=== PATIENT | male | born 1945 | race Caucasian/White ===

== ENCOUNTER 2018-02-13 14:55 | Emergency (ER) | payer OTHER ==
--- NOTE | 2018-02-13 16:20 | RAD REPORT ---
EXAM DESCRIPTION: Nathaniel Single View02/13/2018 3:52 pm CLINICAL HISTORY: cough COMPARISON: 2010 FINDINGS: The lungs appear clear of acute infiltrate. The heart is normal size IMPRESSION: No acute abnormalities displayed
[2018-02-13 16:21] LABS: Absolute Lymphocytes (CBC) 2.2 K/uL (0.7-4.9); Absolute Monocytes 1.5 K/uL (0.1-1.3); Absolute Neutrophil 14.9 K/uL (1.8-8.0); Basophils % 0.4 % (0-1.3); Eosinophils % 0.3 % (0-4.4); Hematocrit 41.1 % (39.6-49.0); Lymphocytes % 11.9 % (15.3-44.8); MCH 30.3 pg (27.0-35.0); MPV 7.8 fL (7.6-11.3); Monocytes % 8.2 % (3.3-12.3); RBC Red Blood Cell Count 4.57 M/uL (4.33-5.43)
[2018-02-13 16:22] LABS: Protime INR 1.21
[2018-02-13 16:23] LABS: Potassium 3.6 mEq/L (3.6-5.0)
[2018-02-13] MEDS ORDERED: Levofloxacin500mg IV 500 MG/100 ML BAG IV ONE (16:50)
--- NOTE | 2018-02-13 17:25 | ER ---
Nurse's Notes [facility] Name: Henry Lawler Age: 72 yrs Sex: Male : 1945 Arrival Date: 02/13/2018 Time: 14:59 Bed 16 Private MD: Diagnosis: Chronic obstructive pulmonary disease with acute lower respiratory infection Presentation: 02/13 15:02 Presenting complaint: Patient states: productive cough, chest congestion, fever up to aa5 101.8 F x 2 days ago. Transition of care: patient was not received from another setting of care. Onset of symptoms was February 2018. Initial Sepsis Screen: Does the patient meet any 2 criteria? HR > 90 bpm. Does the patient have a suspected source of infection? Yes: Productive cough/pneumonia. Care prior to arrival: None. 15:02 Method Of Arrival: Ambulatory aa5 15:02 Acuity: BEAU 3 aa5 Historical: - Allergies: 15:04 Codeine; aa5 - Home Meds: 15:10 rosuvastatin 10 mg oral tab 1 tab once daily [Active]; losartan 50 mg oral tab 1 tab rb1 once daily [Active]; citalopram 20 mg tab 1 tab once daily [Active]; gabapentin 300 mg oral cap 1 cap 3 times per day [Active]; nortriptyline 10 mg Oral cap 1 caps daily [Active]; Centrum Silver oral oral [Active]; CoQ-10 oral oral daily [Active]; nexabiotic [Active]; Curaphen daily [Active]; - PMHx: 15:04 Hypertension; COPD; aa5 - PSHx: 15:04 Heart stents; Appendectomy; aa5 - Immunization history:: Pneumococcal vaccine is up to date. - Social history:: Smoking status: Patient/guardian denies using tobacco, the patient reports quitting approximately 20 years ago. Screenin:10 Abuse screen: Denies threats or abuse. Nutritional screening: No deficits noted. rb1 Tuberculosis screening: No symptoms or risk factors identified. Fall Risk None identified. Assessment: 15:10 General: Appears in no apparent distress. comfortable, Behavior is calm, cooperative, rb1 Reports fever for. Pain: Denies pain. Neuro: Level of Consciousness is awake, alert, obeys commands, Oriented to person, place, time, situation. Cardiovascular: Capillary refill < 3 seconds is brisk in bilateral fingers. Respiratory: Airway is patent Respiratory effort is even, unlabored, Respiratory pattern is regular, symmetrical. GI: No signs and/or symptoms were reported involving the gastrointestinal system. : No signs and/or symptoms were reported regarding the genitourinary system. Derm: Skin is pink, warm \T\ dry. Musculoskeletal: Range of motion: intact in all extremities. 16:00 Reassessment: Patient appears in no apparent distress at this time. No changes from rb1 previously documented assessment. 17:00 Reassessment: Patient appears in no apparent distress at this time. Patient and/or rb1 family updated on plan of care and expected duration. Pain level reassessed. Patient is alert, oriented x 3, equal unlabored respirations, skin warm/dry/pink. is at bedside. 17:54 Reassessment: Discharge pending due to IV antibiotics infusing. rb1 Vital Signs: 15:03 BP 130 / 86; Pulse 106; Resp 20 S; Temp 99.5(TE); Pulse Ox 94% on R/A; Weight 98.43 kg aa5 (R); Height 5 ft. 11 in. (180.34 cm) (R); Pain 0/10; 16:00 BP 142 / 65; Pulse 89; Resp 19; Pulse Ox 94% on R/A; rb1 17:00 BP 163 / 70; Pulse 86; Resp 18; Pulse Ox 95% on R/A; rb1 17:53 BP 163 / 88; Pulse 87; Resp 18; Pulse Ox 99% on R/A; rb1 15:03 Body Mass Index 30.27 (98.43 kg, 180.34 cm) aa5 ED Course: 14:59 Patient arrived in ED. sb2 15:03 Triage completed. aa5 15:03 Arm band placed on. aa5 15:10 Patient has correct armband on for positive identification. Bed in low position. Call rb1 light in reach. Side rails up X 1. equipment monitor phototypesetting on. Pulse ox on. NIBP on. 15:11 Kamille Ovalle FNP-C is PHCP. snw 15:11 Tone Mccabe MD is Attending Physician. snw 15:35 Monique Guallpa, MEHDI is Primary Nurse. rb1 15:50 X-ray completed. Portable x-ray completed in exam room. Patient tolerated procedure la2 well. 15:52 Chest Single View XRAY In Process Unspecified. EDMS 15:56 Initial lab(s) drawn, by pa, sent to lab. First set of blood cultures drawn by me. 3 Inserted saline lock: 20 gauge in left antecubital area, using aseptic technique. Blood collected. 16:14 Second set of blood cultures drawn by venipuncture 23G to the right ac by pa. 3 16:28 EKG done, by ED staff, reviewed by Kamille VALDES. 3 18:00 No provider procedures requiring assistance completed. IV discontinued, intact, rb1 bleeding controlled, No redness/swelling at site. Pressure dressing applied. Administered Medications: 16:50 Drug: LevaQUIN 500 mg Volume: 100 ml; Route: IVPB; Infused Over: 60 mins; Site: left rb1 antecubital; 17:59 Follow up: Response: No adverse reaction; IV Status: Completed infusion rb1 17:51 Drug: Decadron 8 mg Route: PO; rb1 18:00 Follow up: Response: Medication administered at discharge. rb1 Outcome: 17:25 Discharge ordered by . snw 18:00 Discharged to home ambulatory, with family. rb1 18:00 Condition: stable 18:00 Discharge instructions given to patient, Instructed on discharge instructions, follow up and referral plans. medication usage, Demonstrated understanding of instructions, follow-up care, medications, Prescriptions given X 2. 18:08 Patient left the ED. rb1 Signatures: Dispatcher [employer] EDID Kamille Ovalle FNP-C FNP-Kori Aguero RN RN aa5 Monique Guallpa RN RN rb1 Mackenzie Webb 3 Gretchen Vega Sheri sb2 Corrections: (The following items were deleted from the chart) 15:05 15:03 Pulse 106bpm; Resp 20bpm; Spontaneous; Pulse Ox 94% RA; Temp 99.5F Temporal; aa5 aa5
--- NOTE | 2018-02-13 17:25 | EDPHYS ---
Physician Documentation [facility] Name: Henry Lawler Age: 72 yrs Sex: Male : 1945 Arrival Date: 02/13/2018 Time: 14:59 Bed 16 Private MD: ED Physician Tone Mccabe HPI: 02/13 15:27 This 72 yrs old Male presents to ER via Ambulatory with complaints of Cough, snw Chest Congestion, Fever. 15:27 The patient or guardian reports cough, flu symptoms, low-grade fever, myalgias, no snw appetite. Onset: The symptoms/episode began/occurred suddenly, 2 day(s) ago, and became persistent. Severity of symptoms: At their worst the symptoms were moderate. Associated signs and symptoms: Pertinent positives: fever, Pertinent negatives: chest pain, vomiting. It is unknown whether or not the patient has had similar symptoms in the past. It is unknown whether or not the patient has recently seen a physician, PCP is Dr. Jones. Historical: - Allergies: 15:04 Codeine; aa5 - Home Meds: 15:10 rosuvastatin 10 mg oral tab 1 tab once daily [Active]; losartan 50 mg oral tab 1 tab rb1 once daily [Active]; citalopram 20 mg tab 1 tab once daily [Active]; gabapentin 300 mg oral cap 1 cap 3 times per day [Active]; nortriptyline 10 mg Oral cap 1 caps daily [Active]; Centrum Silver oral oral [Active]; CoQ-10 oral oral daily [Active]; nexabiotic [Active]; Curaphen daily [Active]; - PMHx: 15:04 Hypertension; COPD; aa5 - PSHx: 15:04 Heart stents; Appendectomy; aa5 - Immunization history:: Pneumococcal vaccine is up to date. - Social history:: Smoking status: Patient/guardian denies using tobacco, the patient reports quitting approximately 20 years ago. ROS: 15:34 Eyes: Negative for injury, pain, redness, and discharge, ENT: Negative for injury, snw pain, and discharge, Neck: Negative for injury, pain, and swelling, Abdomen/GI: Negative for abdominal pain, nausea, vomiting, diarrhea, and constipation, Back: Negative for injury and pain, : Negative for injury, bleeding, discharge, and swelling, MS/Extremity: Negative for injury and deformity, Skin: Negative for injury, rash, and discoloration, Neuro: Negative for headache, weakness, numbness, tingling, and seizure. 15:34 Cardiovascular: Negative for chest pain, palpitations, and edema. 15:34 Constitutional: Positive for body aches, chills, fatigue, fever, malaise, poor PO intake. 15:34 Respiratory: Positive for cough. Exam: 15:33 Head/Face: Normocephalic, atraumatic. Eyes: Pupils equal round and reactive to light, snw extra-ocular motions intact. Lids and lashes normal. Conjunctiva and sclera are non-icteric and not injected. Cornea within normal limits. Periorbital areas with no swelling, redness, or edema. ENT: Nares patent. No nasal discharge, no septal abnormalities noted. Tympanic membranes are normal and external auditory canals are clear. Oropharynx with no redness, swelling, or masses, exudates, or evidence of obstruction, uvula midline. Mucous membranes moist. Neck: Trachea midline, no thyromegaly or masses palpated, and no cervical lymphadenopathy. Supple, full range of motion without nuchal rigidity, or vertebral point tenderness. No Meningismus. Chest/axilla: Normal chest wall appearance and motion. Nontender with no deformity. No lesions are appreciated. 15:33 Abdomen/GI: Soft, non-tender, with normal bowel sounds. No distension or tympany. No guarding or rebound. No evidence of tenderness throughout. Back: No spinal tenderness. No costovertebral tenderness. Full range of motion. Skin: Warm, dry with normal turgor. Normal color with no rashes, no lesions, and no evidence of cellulitis. MS/ Extremity: Pulses equal, no cyanosis. Neurovascular intact. Full, normal range of motion. Neuro: Awake and alert, GCS 15, oriented to person, place, time, and situation. Cranial nerves II-XII grossly intact. Motor strength 5/5 in all extremities. Sensory grossly intact. Cerebellar exam normal. Normal gait. 15:33 Constitutional: The patient appears alert, awake, febrile. 15:33 Cardiovascular: Rate: tachycardic, Rhythm: regular, Pulses: no pulse deficits are appreciated, Heart sounds: normal. 15:33 Respiratory: the patient does not display signs of respiratory distress, Respirations: shallow respirations, tachypnea, Breath sounds: are clear throughout. Vital Signs: 15:03 BP 130 / 86; Pulse 106; Resp 20 S; Temp 99.5(TE); Pulse Ox 94% on R/A; Weight 98.43 kg aa5 (R); Height 5 ft. 11 in. (180.34 cm) (R); Pain 0/10; 16:00 BP 142 / 65; Pulse 89; Resp 19; Pulse Ox 94% on R/A; rb1 17:00 BP 163 / 70; Pulse 86; Resp 18; Pulse Ox 95% on R/A; rb1 17:53 BP 163 / 88; Pulse 87; Resp 18; Pulse Ox 99% on R/A; rb1 15:03 Body Mass Index 30.27 (98.43 kg, 180.34 cm) aa5 MDM: 15:16 Patient medically screened. snw 17:27 Data reviewed: vital signs, nurses notes. Data interpreted: Pulse oximetry: on room air snw is 95 %. Interpretation: acceptable. Counseling: I had a detailed discussion with the patient and/or guardian regarding: the historical points, exam findings, and any diagnostic results supporting the discharge/admit diagnosis, the presence of at least one elevated blood pressure reading (>120/80) during this emergency department visit, lab results, radiology results, the need for outpatient follow up, to return to the emergency department if symptoms worsen or persist or if there are any questions or concerns that arise at home. Special discussion: I have referred the patient to see his PCP for further evaluation of high blood pressure. Based on the history and exam findings, there is no indication for further emergent testing or inpatient evaluation. I discussed with the patient/guardian the need to see the primary care provider for further evaluation of the symptoms. 02/13 15:15 Order name: Basic Metabolic Panel; Complete Time: 16:42 snw 02/13 15:15 Order name: Blood Culture Adult (2) snw 02/13 15:15 Order name: BNP; Complete Time: 16:42 snw 02/13 15:15 Order name: CBC with Diff; Complete Time: 16:42 snw 02/13 15:15 Order name: Lactate; Complete Time: 16:42 snw 02/13 15:15 Order name: Procalcitonin; Complete Time: 16:57 snw 02/13 15:15 Order name: Protime (+inr); Complete Time: 16:42 snw 02/13 15:15 Order name: Ptt, Activated; Complete Time: 16:42 w 02/13 15:15 Order name: Chest Single View XRAY; Complete Time: 16:42 w 02/13 15:15 Order name: Cardiac monitoring; Complete Time: 16:29 snw 02/13 15:15 Order name: EKG - Nurse/Tech; Complete Time: 16:29 w 02/13 15:15 Order name: IV Saline Lock - Large Bore; Complete Time: 16:06 snw 02/13 15:15 Order name: Labs collected and sent; Complete Time: 16:06 snw 02/13 15:15 Order name: O2 Per Protocol; Complete Time: 16:19 w 02/13 15:15 Order name: O2 Sat Monitoring; Complete Time: 16:19 snw Administered Medications: 16:50 Drug: LevaQUIN 500 mg Volume: 100 ml; Route: IVPB; Infused Over: 60 mins; Site: left rb1 antecubital; 17:59 Follow up: Response: No adverse reaction; IV Status: Completed infusion rb1 17:51 Drug: Decadron 8 mg Route: PO; rb1 18:00 Follow up: Response: Medication administered at discharge. rb1 Disposition: 18:13 Co-signature as Attending Physician, Tone Mccabe MD. rn Disposition: 02/13/18 17:25 Discharged to Home. Impression: Chronic obstructive pulmonary disease with acute lower respiratory infection. - Condition is Stable. - Discharge Instructions: Chronic Obstructive Pulmonary Disease, Pneumonia, Adult. - Prescriptions for Levaquin 500 mg Oral Tablet - take 1 tablet by ORAL route once daily for 7 days; 7 tablet. Albuterol Sulfate 90 mcg/actuation - inhale 1-2 puff by INHALATION route every 4-6 hours; 1 Inhaler. - Medication Reconciliation Form, Thank You Letter, Antibiotic Education, Prescription Opioid Use form. - Follow up: Private Physician; When: 1 - 2 days; Reason: Recheck today's complaints, Continuance of care, Re-evaluation by your physician. Follow up: Emergency Department; When: As needed; Reason: Worsening of condition. Signatures: Dispatcher [employer] EDMD Kamille Ovalle, HABILITATION TRAINING SPECIALIST-C HABILITATION TRAINING SPECIALIST-Csnw Tone Mccabe MD MD rn Kori Augustin, RN RN aa5 Monique Guallpa, RN RN rb1 Corrections: (The following items were deleted from the chart) 18:08 17:25 02/13/2018 17:25 Discharged to Home. Impression: Chronic obstructive pulmonary rb1 disease with acute lower respiratory infection. Condition is Stable. Forms are Medication Reconciliation Form, Thank You Letter, Antibiotic Education, Prescription Opioid Use. Follow up: Private Physician; When: 1 - 2 days; Reason: Recheck today's complaints, Continuance of care, Re-evaluation by your physician. Follow up: Emergency Department; When: As needed; Reason: Worsening of condition. snw
[2018-02-13] MEDS ORDERED: DEXAMETHASONE 4 MG TAB ONE (17:48)
--- NOTE | 2018-02-14 10:14 | EKG ---
Test Date: 2018-02-13 Test Time: 16:20:45 Bryologist: JAVI MEASUREMENT RESULTS: Intervals: Rate: 85 NM: 174 QRSD: 96 QT: 372 QTc: 442 [place]: P: 57 NM: 174 QRS: 54 T: 46 INTERPRETIVE STATEMENTS: Normal sinus rhythm Normal ECG Compared to ECG 07/18/2011 16:24:57 ST (T wave) deviation no longer present Electronically Signed On 02-14-18 10:13:46 CDT by Regino Wakefield
--- NOTE | 2018-02-14 10:14 | EKG ---
Test Date: 2018-02-13 Test Time: 17:16:21 Compressor Station Engineer: JAVI MEASUREMENT RESULTS: Intervals: Rate: 96 [place]: 156 QRSD: 88 QT: 350 QTc: 442 [place]: P: 60 [place]: 156 QRS: -47 T: 51 INTERPRETIVE STATEMENTS: Normal sinus rhythm Left axis deviation Inferior infarct, age undetermined Abnormal ECG Compared to ECG 02/13/2018 16:20:45 Left-axis deviation now present Myocardial infarct finding now present Electronically Signed On 02-14-18 10:13:44 CDT by Regino Wakefield
== END 2018-02-13 18:08 | disposition home or self-care (01) ==
LOC: ER 14:55
DX: J44.0 Chronic obstructive pulmonary disease with (acute) lower respiratory infection (principal); J22 Unspecified acute lower respiratory infection; I10 Essential (primary) hypertension; Z88.5 Allergy status to narcotic agent; Z95.818 Presence of other cardiac implants and grafts
CPT/HCPCS: 36415; 71045; 80048; 83605; 83880; 84145; 85025; 85610; 85730; 87040; 93005; 96365; 99285

== ENCOUNTER 2022-01-01 06:29 | Day surgery (SDC) | payer OTHER ==
[2021-12-26 14:50] LABS: Absolute Lymphocytes (CBC) 2.2 K/uL (0.7-4.9); Hematocrit 38.3 % (39.6-49.0); Lymphocytes % 25.7 % (15.3-44.8); MPV 7.1 fL (7.6-11.3); RBC Red Blood Cell Count 4.29 M/uL (4.33-5.43)
[2021-12-26 15:02] LABS: Protime INR 1.07
[2021-12-26 15:05] LABS: Potassium 4.1 mmol/L (3.5-5.1)
--- NOTE | 2021-12-26 15:08 | RAD REPORT ---
EXAM DESCRIPTION: RAD - Chest Pa And Lat (2 Views) - 12/26/2021 2:51 pm CLINICAL HISTORY: PRE CARDIAC CATH, history of cardiac stents, history of hypertension COMPARISON: Portable 02/13/2018 TECHNIQUE: Frontal and lateral views of the chest were obtained. FINDINGS: The lungs are fibrotic but clear of a focal lung parenchymal process. No failure or volume overload. Interstitial pattern is not clearly different from 2018 imaging. Heart size is normal an d central vasculature is within normal limits. No pleural effusion or pneumothorax seen. No acute b chago finding noted. No aortic abnormality. IMPRESSION: No acute cardiopulmonary process.
--- NOTE | 2021-12-30 08:30 | EKG ---
Test Date: 2021-12-26 Test Time: 13:24:36 Rate Examiner: ZAC MEASUREMENT RESULTS: Intervals: Rate: 70 [place]: 178 QRSD: 96 QT: 418 QTc: 451 [place]: P: 60 [place]: 178 QRS: 67 T: 55 INTERPRETIVE STATEMENTS: Sinus rhythm with premature atrial complexes Otherwise normal ECG Compared to ECG 02/13/2018 17:16:21 Atrial premature complex(es) now present Left-axis deviation no longer present Myocardial infarct finding no longer present Electronically Signed On 12-30-21 08:23:36 CDT by Irineo Ron
[2022-01-01] MEDS ORDERED: FENTANYL CITR 100 MCG/2 ML ONE ×2 (06:35→07:09)
[2022-01-01] MEDS ORDERED: MIDAZOLAM HCL 2 MG/2 ML INJ ONE ×2 (06:35→07:09)
[2022-01-01] MEDS ORDERED: ATROPINE SULF 1 MG/10 ML SYR IV ONE ×2 (06:35→07:09)
[2022-01-01] MEDS ORDERED: HEPA 1000U/500MLS 1,000 UNIT/500 ML BAG IV ONE (06:36)
[2022-01-01] MEDS ORDERED: LIDOCAINE 1% 20 ML MDV ONE (06:36)
[2022-01-01] MEDS ORDERED: NA CHLORIDE 0.9% 500 ML ONE (06:45)
--- NOTE | 2022-01-01 08:46 | OP ---
Surgeon: Irineo Ron MD Rotary Machine Operator: Domenica Mortensen. Indication: Admitted on 01/01/2022 as an outpatient to my service for selective bilateral carotid an giogram. He was brought to the cardiac cath lab radiology technologist as an outpatient. He is 76 and has had a history of CAD, CV D, hypertension, dyslipidemia, worsening stenosis of the left common carotid by Doppler. Procedure In Detail: Brought to the cardiac cath lab radiology technologist today as an outpatient, prepped and draped in a routine sterile fashion, given Versed and fentanyl for sedation. A 6-Liberian sheath introduced in the right common femoral artery successfully. Angiography there was normal. Angio-Seal was used to close the case. A 6-Liberian sheath introduced in the right common femoral artery using the Seldinger technique and 10 cc Xylocaine. A JR4 catheter Elana was used to selectively cannulate the right common carot id and then the left common carotid. Angiography showed normal external carotid and normal internal carotid bilaterally. The right common carotid was normal. The left common carotid had a 40% mid golden nosis. There were no complications or blood loss. Total conscious sedation was 30 minutes. The pat ient tolerated the procedure well. Final Diagnosis: [id number] cerebrovascular disease. Plan: For medical therapy. I will increase his Crestor to 40 mg daily. He can go home today after 2 hours of bedrest and see me in the office in 2 weeks. YUSEF/ITZELL Voice ID: [id number] Report ID: [id number]
[2022-01-01 10:07] VITALS: BP 128/58; O2SAT 18
== END 2022-01-01 10:09 | disposition home or self-care (01) ==
LOC: CCL 06:29
DX: I65.22 Occlusion and stenosis of left carotid artery (principal); I25.10 Atherosclerotic heart disease of native coronary artery without angina pectoris; I10 Essential (primary) hypertension; E78.2 Mixed hyperlipidemia; J44.1 Chronic obstructive pulmonary disease with (acute) exacerbation; F41.1 Generalized anxiety disorder; G62.9 Polyneuropathy, unspecified; Z98.61 Coronary angioplasty status; Z87.891 Personal history of nicotine dependence; Z79.82 Long term (current) use of aspirin; Z79.899 Other long term (current) drug therapy; Z88.6 Allergy status to analgesic agent; Z82.49 Family history of ischemic heart disease and other diseases of the circulatory system
CPT/HCPCS: 93005; 85025; 80048; 36415; 85610; 85730; 71046; 36222; C1893; C1760; J2250; J3010; J7040; J1644

== ENCOUNTER 2022-01-26 10:27 | Emergency (ER) | payer OTHER ==
[2022-01-26 13:39] LABS: Absolute Lymphocytes (CBC) 1.2 K/uL (0.7-4.9); Hematocrit 35.7 % (39.6-49.0); MPV 7.1 fL (7.6-11.3); RBC Red Blood Cell Count 3.93 M/uL (4.33-5.43)
--- NOTE | 2022-01-26 13:41 | RAD REPORT ---
EXAM DESCRIPTION: Nathaniel Single View01/26/2022 1:16 pm CLINICAL HISTORY: Shortness of breath COMPARISON: December 2021 FINDINGS Lungs appear clear of acute infiltrate. Lungs are mildly hyperaerated. The heart is normal size
[2022-01-26 13:43] LABS: Protime INR 1.31
[2022-01-26 13:55] LABS: Albumin 3.1 g/dL (3.4-5.0); Bilirubin Direct 0.2 mg/dL (0-0.2); Bilirubin Total 0.6 mg/dL (0.2-1.0); Potassium 4.3 mmol/L (3.5-5.1); Protein, Total 7.9 g/dL (6.4-8.2)
[2022-01-26 14:40] LABS: Urine Blood Trace-intact (Negative); Urine Glucose Negative (Negative); Urine Protein 2+ (Negative); Urine Specific Gravity >=1.030 (1.005-1.030)
[2022-01-26 15:17] LABS: Urine Bacteria <20 /HPF (NONE SEEN); Urine Mucus LIGHT /HPF (NONE SEEN); Urine RBC <5 /HPF (NONE SEEN)
[2022-01-26 15:36] LABS: SARS-COV-2 RT PCR NEGATIVE (NEGATIVE)
[2022-01-26] MEDS ORDERED: NA CHLORIDE 0.9% 1,000 ML ONE (16:15)
--- NOTE | 2022-01-26 16:20 | ER ---
Nurse's Notes [facility] Name: Henry Lawler Age: 76 yrs Sex: Male : 1945 Arrival Date: 01/26/2022 Time: 10:30 Bed 10 Private MD: Diagnosis: Dehydration;Possible side effect to prescription medication Presentation: 01/26 11:35 Chief complaint: Patient states: Asaf changed Rosuvastatin 20 - 40 on the last month, reports dark urine, SOB, cough, mild fever, body aches x 1 week. Coronavirus screen: cough unrelated to allergies, fever, Client presents with at least one sign or symptom that may indicate coronavirus-19. Standard/surgical mask placed on the client. Provider contacted for isolation considerations. Ebola Screen: No symptoms or risks identified at this time. Initial Sepsis Screen: Does the patient meet any 2 criteria? No. Patient's initial sepsis screen is negative. Does the patient have a suspected source of infection? No. Patient's initial sepsis screen is negative. Risk Assessment: Do you want to hurt yourself or someone else? Patient reports no desire to harm self or others. Onset of symptoms is unknown. Care prior to arrival: None. 11:35 Method Of Arrival: Ambulatory 7 11:35 Acuity: BEAU 3 jl7 Triage Assessment: 11:40 General: Appears in no apparent distress. uncomfortable, Behavior is calm, cooperative, jl7 appropriate for age. Pain: Complains of pain in all over. Neuro: Level of Consciousness is awake, alert, obeys commands, Oriented to person, place, time, situation. Cardiovascular: Patient's skin is warm and dry. Respiratory: Reports shortness of breath at rest Airway is patent Respiratory effort is even, unlabored, Respiratory pattern is regular, symmetrical, Onset: The symptoms/episode began/occurred gradually, the patient has mild shortness of breath. Derm: Skin is pink, warm \T\ dry. Historical: - Allergies: 11:40 Codeine; jl7 - Home Meds: 11:40 citalopram 20 mg tab 1 tab once daily [Active]; gabapentin 300 mg Oral cap 1 cap 3 jl7 times per day [Active]; rosuvastatin 40 mg oral tab [Active]; nortriptyline 10 mg Oral cap 1 caps daily [Active]; losartan 50 mg Oral tab 1 tab once daily [Active]; amlodipine 2.5 mg tab [Active]; - PMHx: 11:40 COPD; Hypertension; high chol; jl7 - Immunization history:: Client reports receiving the 2nd dose of the Covid vaccine. - Social history:: Smoking status: Patient denies any tobacco usage or history of. Screenin:20 Abuse screen: Denies threats or abuse. Denies injuries from another. Nutritional 6 screening: No deficits noted. Tuberculosis screening: No symptoms or risk factors identified. Fall Risk None identified. Assessment: 16:20 General: Appears in no apparent distress. Behavior is calm, cooperative. jh6 16:20 Cardiovascular: No deficits noted. Cardiovascular: Rhythm is regular. Respiratory: jh6 Airway is patent Trachea midline Respiratory effort is even, unlabored, Respiratory pattern is regular, Breath sounds are clear. Vital Signs: 11:35 BP 147 / 59; Pulse 105; Resp 19; Temp 99.9; Pulse Ox 94% on R/A; Weight 92.53 kg; jl7 Height 5 ft. 11 in. (180.34 cm); Pain 5/10; 17:00 BP 138 / 62; Pulse 82; Resp 18; Pulse Ox 100% ; Pain 0/10; jh6 11:35 Body Mass Index 28.45 (92.53 kg, 180.34 cm) jl7 ED Course: 10:30 Patient arrived in ED. jj6 11:40 Triage completed. jl7 11:40 Arm band placed on right wrist. jl7 11:49 Rainer Siegel NP is PHCP. pm1 11:49 Adam Morin MD is Attending Physician. pm1 13:17 XRAY Chest (1 view) In Process Unspecified. EDMS 13:30 Inserted saline lock: 20 gauge in left hand, using aseptic technique. Blood collected. mb7 14:42 Urine Microscopic Only Sent. zm 16:20 Yane Hodge, RN is Primary Nurse. 6 16:20 Bed in low position. Call light in reach. Side rails up X 1. Adult w/ patient. jh6 16:24 Throat Culture Sent. zm 18:10 IV discontinued, intact, bleeding controlled, No redness/swelling at site. Pressure 6 dressing applied. Administered Medications: 16:20 Drug: NS 0.9% 500 ml Route: IV; Rate: bolus; Site: left forearm; 6 16:20 Drug: NS 0.9% 500 ml Route: IV; Rate: bolus; Site: left forearm; 6 Outcome: 16:19 Discharge ordered by . pm1 18:07 Discharged to home ambulatory. jh6 18:07 Condition: good 18:07 Discharge instructions given to patient, family, Instructed on discharge instructions, follow up and referral plans. Demonstrated understanding of instructions, follow-up care. 18:10 Patient left the ED. 6 Signatures: Dispatcher [employer] EDMS Rainer Siegel NP BOX TOE BUFFER pm1 Joseph Saez RN RN jl7 Yane Callahan6 Yane Hodge RN RN jh6 Virgen Sun 7 Luh Rodney
--- NOTE | 2022-01-26 16:20 | EDPHYS ---
Physician Documentation [facility] Name: Henry Lawler Age: 76 yrs Sex: Male : 1945 Arrival Date: 01/26/2022 Time: 10:30 Bed 10 Private MD: ED Physician Adam Morin HPI: 01/26 11:53 This 76 yrs old Male presents to ER via Ambulatory with complaints of Shortness Of pm1 Breath, HEMATURIA FOR MORE THAN 72 HRS, RECENT MED CHANGE 01/01/22 BY TISHA, BODY ACHES, LOW GRADE FEVER-UPDATED MED LIST ON CHART. 11:53 The patient or guardian reports cough, with no sputum. Onset: The symptoms/episode pm1 began/occurred 1 week(s) ago. Severity of symptoms: in the emergency department the symptoms are unchanged. 11:53 Modifying factors: The symptoms are alleviated by nothing. Associated signs and pm1 symptoms: Pertinent positives: elevated temperature, cough with shortness of breath, and bodyaches. Patient also reports darkened urine, concern for hematuria. Patient is also concerned that he may have rhabdomyolysis due to increase dosage of his Lipitor from 20 mg to 40 mg. The patient has not experienced similar symptoms in the past. The patient has been recently seen by a physician: with different complaint(s), and apparently was diagnosed with Hyperlipidemia. Increased Lipitor from 20 mg to 40 mg. Patient has been taking 20 mg for multiple years, and recently had his dosage increased due to poor control of his hyperlipidemia. Patient reports suspicion that it is causing his generalized body aches and help with his dosage last night and reports improvement in his body aches already. Historical: - Allergies: 11:40 Codeine; jl7 - Home Meds: 11:40 citalopram 20 mg tab 1 tab once daily [Active]; gabapentin 300 mg Oral cap 1 cap 3 jl7 times per day [Active]; rosuvastatin 40 mg oral tab [Active]; nortriptyline 10 mg Oral cap 1 caps daily [Active]; losartan 50 mg Oral tab 1 tab once daily [Active]; amlodipine 2.5 mg tab [Active]; - PMHx: 11:40 COPD; Hypertension; high chol; jl7 - Immunization history:: Client reports receiving the 2nd dose of the Covid vaccine. - Social history:: Smoking status: Patient denies any tobacco usage or history of. ROS: 11:53 Constitutional: Negative for fever, chills, and weight loss, Cardiovascular: Negative pm1 for chest pain, palpitations, and edema. 11:53 ENT: Negative for injury, pain, and discharge, Neck: Negative for injury, pain, and swelling, Abdomen/GI: Negative for abdominal pain, nausea, vomiting, diarrhea, and constipation, Back: Negative for injury and pain, MS/Extremity: Negative for injury and deformity, Skin: Negative for injury, rash, and discoloration. 11:53 Respiratory: Positive for cough, shortness of breath. 11:53 : Positive for hematuria, Darken urine, Negative for urinary frequency, small amounts, pelvic pain, flank pain. 11:53 All other systems are negative. Exam: 11:53 Constitutional: This is a well developed, well nourished patient who is awake, alert, pm1 and in no acute distress. Head/Face: Normocephalic, atraumatic. 11:53 Back: No spinal tenderness. No costovertebral tenderness. Full range of motion. Skin: Warm, dry with normal turgor. Normal color with no rashes, no lesions, and no evidence of cellulitis. MS/ Extremity: Pulses equal, no cyanosis. Neurovascular intact. Full, normal range of motion. 11:53 Eyes: Exam is negative for acute changes, Periorbital structures: appear normal, Pupils: no acute changes, Conjunctiva: no acute changes, no injection, Sclera: no acute changes, icterus, is not appreciated. 11:53 ENT: Exam is negative for acute changes, Mouth: no acute changes, Lips: normal, moist, Oral mucosa: normal, pink and intact, moist. 11:53 Cardiovascular: Exam negative for acute changes, Rate: normal, Rhythm: regular, Pulses: no pulse deficits are appreciated, Heart sounds: normal, normal S1and S2. 11:53 Respiratory: Exam negative for acute changes, respiratory distress, shortness of breath, Breath sounds: are clear throughout. 11:53 Abdomen/GI: Exam negative for acute changes, Inspection: abdomen appears normal, Palpation: abdomen is soft and non-tender, in all quadrants. 11:53 Neuro: Exam negative for acute changes, Orientation: is normal, Mentation: is normal, Motor: is normal, moves all fours, Sensation: is normal, no obvious gross deficits. Vital Signs: 11:35 BP 147 / 59; Pulse 105; Resp 19; Temp 99.9; Pulse Ox 94% on R/A; Weight 92.53 kg; jl7 Height 5 ft. 11 in. (180.34 cm); Pain 5/10; 17:00 BP 138 / 62; Pulse 82; Resp 18; Pulse Ox 100% ; Pain 0/10; jh6 11:35 Body Mass Index 28.45 (92.53 kg, 180.34 cm) jl7 MDM: 11:54 Patient medically screened. pm1 16:18 Data reviewed: vital signs. pm1 16:18 Counseling: I had a detailed discussion with the patient and/or guardian regarding: the pm1 historical points, exam findings, and any diagnostic results supporting the discharge/admit diagnosis, lab results, radiology results, the need for outpatient follow up, to return to the emergency department if symptoms worsen or persist or if there are any questions or concerns that arise at home. 16:18 Differential Diagnosis: Influenza Upper Respiratory Infection Pneumonia Other Side pm1 effect to cholesterol medication, dehydration. 01/26 11:53 Order name: COVID-19/FLU A+B (Document "Date of Onset" if Symptomatic); Complete Time: pm1 15:37 01/26 11:53 Order name: CPK; Complete Time: 14:16 pm01/26 11:53 Order name: Strep; Complete Time: 15:37 pm01/26 11:53 Order name: Basic Metabolic Panel; Complete Time: 14:16 pm01/26 11:53 Order name: CBC with Diff; Complete Time: 13:54 pm01/26 11:53 Order name: LFT's; Complete Time: 14:16 pm01/26 11:53 Order name: NT PRO-BNP; Complete Time: 14:16 pm01/26 11:53 Order name: PT-INR; Complete Time: 13:54 pm01/26 11:53 Order name: Troponin HS; Complete Time: 14:16 pm01/26 11:53 Order name: XRAY Chest (1 view); Complete Time: 13:54 pm1 01/26 14:17 Order name: Urine Microscopic Only; Complete Time: 15:18 pm01/26 14:41 Order name: Urine Dipstick-Ancillary; Complete Time: 14:52 EDMS 01/26 15:23 Order name: Throat Culture [facility] 01/26 11:53 Order name: Urine Dipstick-Ancillary (obtain specimen); Complete Time: 14:34 pm1 01/26 11:53 Order name: IV Saline Lock; Complete Time: 14:34 pm1 01/26 11:53 Order name: Cardiac monitoring pm1 01/26 11:53 Order name: EKG - Nurse/Tech pm1 01/26 11:53 Order name: Labs collected and sent pm1 01/26 11:53 Order name: O2 Per Protocol pm1 01/26 11:53 Order name: O2 Sat Monitoring pm1 Administered Medications: 16:20 Drug: NS 0.9% 500 ml Route: IV; Rate: bolus; Site: left forearm; jh6 16:20 Drug: NS 0.9% 500 ml Route: IV; Rate: bolus; Site: left forearm; jh6 Disposition Summary: 01/26/22 16:19 Discharge Ordered Location: Home pm1 Problem: new pm1 Symptoms: have improved pm1 Condition: Stable pm1 Diagnosis - Dehydration pm1 - Possible side effect to prescription medication pm1 Followup: pm1 - With: Emergency Department - When: As needed - Reason: Worsening of condition Followup: pm1 - With: Private Physician - When: 2 - 3 days - Reason: Recheck today's complaints, Continuance of care, Re-evaluation by your physician Discharge Instructions: - Discharge Summary Sheet pm1 - Dehydration, Elderly pm1 - Rehydration, Elderly pm1 Forms: - Medication Reconciliation Form pm1 - Thank You Letter pm1 - Antibiotic Education pm1 - Prescription Opioid Use pm1 Addendum: 01/31/2022 07:43 Co-signature as Attending Physician, Adam Morin MD I agree with the assessment and c arita plan of care. Signatures: Dispatcher [employer] Adam Orozco MD MD cha Marinas, Patrick, BLANKET BINDER BLANKET BINDER pm1 Joseph Saez RN RN jl7 Yane Hodge RN RN jh6
[2022-01-26 19:08] VITALS: TEMP 99.9
[2022-01-26 19:10] VITALS: BP 138/62; O2SAT 100
== END 2022-01-26 18:10 | disposition home or self-care (01) ==
LOC: ER 10:27
DX: E86.0 Dehydration (principal); R31.9 Hematuria, unspecified; R05.9 Cough, unspecified; J44.9 Chronic obstructive pulmonary disease, unspecified; I10 Essential (primary) hypertension; E78.00 Pure hypercholesterolemia, unspecified; Z88.5 Allergy status to narcotic agent; Z20.822 Contact with and (suspected) exposure to COVID-19
CPT/HCPCS: 87070; 85025; 80048; 36415; 82550; 85610; 80076; 87081; 84484; 83880; 0240U; 71045; 99284; J7030; 81003; 81015

== ENCOUNTER 2024-11-15 11:15 | Day surgery (SDC) | payer OTHER ==
--- NOTE | 2024-11-11 14:05 | RAD REPORT ---
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 No pleural effusions or pneumothorax. No pulmonary edema. MEDIASTINUM: The mediastinal silhouette is within normal limits CARDIAC: The cardiac silhouette is within normal limits. UPPER ABDOMEN: No significant abnormality. BONES: No acute abnormality. LINES/TUBES/OTHER: N/A IMPRESSION: No evidence of acute cardiopulmonary disease.
[2024-11-11 14:15] LABS: Anion Gap 14.1 mEq/L (5.0-15.0); Potassium 4.1 mEq/L (3.5-5.1)
[2024-11-11 14:24] LABS: Absolute Basophils 0.1 K/uL (0-0.5); Absolute Eosinophils 0.2 K/uL (0-0.5); Absolute Lymphocytes (CBC) 1.8 K/uL (0.7-4.9); Absolute Monocytes 0.7 K/uL (0.1-1.3); Absolute Neutrophil 8.8 K/uL (1.8-8.0); Basophils % 0.5 % (0-1.3); Hematocrit 36.5 % (39.6-49.0); Hemoglobin 12.7 g/dL (13.6-17.9); Lymphocytes % 15.8 % (15.3-44.8); MCH 31.2 pg (27.0-35.0); MCHC 34.9 g/dL (32.0-36.0); MCV 89.5 fL (80-100); MPV 7.4 fL (7.6-11.3); Monocytes % 5.7 % (3.3-12.3); Platelets 354 thou/uL (152-406); RBC Red Blood Cell Count 4.08 M/uL (4.33-5.43); Red Cell Distribution Width 13.3 % (12.1-15.2)
[2024-11-11 14:27] LABS: PT Prothrombin Time 11.5 SECONDS (9.4-12.5); PTT, Activated Partial Thromb 33.2 SECONDS (24.3-36.9); Protime INR 1.1
[2024-11-15] MEDS: NA CHLORIDE 0.9% 500 ML ONE (11:20)
[2024-11-15] MEDS ORDERED: NITROGLYCERIN/D5W 50 MG/250 ML BTL IV ONE (12:01)
[2024-11-15] MEDS ORDERED: LIDOCAINE 1% 20 ML MDV ONE (12:01)
[2024-11-15] MEDS ORDERED: HEPARIN 5000 UNIT/ML 1 ML VIAL ONE (12:01)
[2024-11-15] MEDS ORDERED: HEPA 1000U/500MLS 2,000 UNIT/1,000 ML BAG IV ONE (12:01)
[2024-11-15] MEDS ORDERED: VERAPAMIL HCL 10 MG/4 ML VIAL IV ONE (12:01)
[2024-11-15] MEDS ORDERED: ATROPINE SULF 1 MG/10 ML SYR IV ONE (12:06)
[2024-11-15] MEDS ORDERED: TICAGRELOR 90 MG TABLET PO ONE (12:07)
[2024-11-15] MEDS ORDERED: CLOPIDOGREL 75 MG TABLET ONE (12:07)
[2024-11-15] MEDS ORDERED: ASPIRIN 325 MG TAB ONE (12:07)
[2024-11-15] MEDS ORDERED: MIDAZOLAM HCL 2 MG/2 ML INJ ONE (12:08)
[2024-11-15] MEDS ORDERED: FENTANYL CITR 100 MCG/2 ML ONE (12:08)
[2024-11-15] MEDS ORDERED: HEPARIN 10,000 UNIT/10 ML VIAL IV ONE (12:08)
--- NOTE | 2024-11-15 12:26 | EKG ---
Test Date: 2024-11-11 Test Time: 14:49:54 Door Hanger: SHARON MEASUREMENT RESULTS: Intervals: Rate: 85 OK: 188 QRSD: 100 QT: 392 QTc: 466 Rawlings: P: 75 OK: 188 QRS: 72 T: 70 INTERPRETIVE STATEMENTS: Normal sinus rhythm Normal ECG Compared to ECG 12/26/2021 13:24:36 Atrial premature complex(es) no longer present Electronically Signed On 11-15-24 12:19:51 PERSONNEL PLACEMENT SPECIALIST by Taj Singh
--- NOTE | 2024-11-15 14:23 | OP ---
Date of Procedure: 11/15/2024 Surgeon: DARRION LU Procedures Performed: 1. Selective coronary angiogram. 2. Left heart catheterization. 3. IVUS of left main, the minimal luminal area was 4.27 sq mm. Indication: Chest pain with abnormal stress test. Access: Right radial artery 6-Puerto Rican, closed with TR band. Complications: None. Bleeding: Less than 50 mL. Anesthesia: Total sedation time is 1 hour. Description Of Procedure: After risks, benefits, and alternatives were explained, the patient agreed to procedure and signed informed consent. [facility] pre[facility] and draped in usual sterile fashion. Then, I accessed right radial artery using pedi atric micropuncture kit and ultrasound guidance, and placed 6-[place]ican slender sheath and took 5-[place] Bradshaw 4.0 catheter into the aortic root over a J-wire across the aortic valve, measured the LVEDP. Pullback did not record any gradient, then engaged the left main, took standard views, and in the RCA , took standard views. Then, I gave systemic heparin to assure ACT level above 250, and then took EB U 3.5 guide into the aortic root, engaged the left main, took Runthrough wire into the left main and LAD, placed it distally and took IVUS catheter and did IVUS of left main and proximal LAD and then re moved the wire. Final angiogram showed no complications. Removed the guide and the sheath and place d TR band with good hemostasis. Findings: 1. Left main; in the mid segment, it is very hazy, probably 60% to 70% stenosis, and minimal luminal area by IVUS is 4.27 sq mm indicating severe left main disease. 2. LAD; proximal segment is normal. There is a mid LAD stent that is normal. The rest of the LAD is normal. Diagonal branches with luminal irregularities. 3. Left circumflex; moderate size, proximal 50%. The rest of the left circumflex is normal and the O M1 branch has proximal 50% stenosis. 4. RCA; it is a dominant circulation proximal 40%, mid 40%. The rest of it is with luminal irregular ities. 5. LVEDP is 10 mmHg, which is normal. Conclusion: 1. 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 2. Moderate coronary artery disease elsewhere with widely patent LAD stent. Recommendation: CABG versus complex PCI with Impella of left main with shockwave. SR/MODL Voice ID: [id number] Report ID: [id number]
[2024-11-15 17:18] VITALS: BP 140/50; TEMP 97; O2SAT 96
== END 2024-11-15 16:45 | disposition home or self-care (01) ==
LOC: CCL 11:15
PROVIDERS: ATTEND Internal Medicine
DX: I25.10 Atherosclerotic heart disease of native coronary artery without angina pectoris (principal); I34.0 Nonrheumatic mitral (valve) insufficiency; I65.23 Occlusion and stenosis of bilateral carotid arteries; I10 Essential (primary) hypertension; E78.5 Hyperlipidemia, unspecified; J44.9 Chronic obstructive pulmonary disease, unspecified; Z95.5 Presence of coronary angioplasty implant and graft; Z87.891 Personal history of nicotine dependence; Z79.82 Long term (current) use of aspirin; Z79.899 Other long term (current) drug therapy; Z88.5 Allergy status to narcotic agent; Z82.49 Family history of ischemic heart disease and other diseases of the circulatory system
CPT/HCPCS: 36415; 71046; 76937; 80048; 85025; 85347; 85610; 85730; 92978; 93005; 93458; 93571; 99152; C1893; J0461; J1644; J2003; J2250; J3010; J7040; Q9967

== ENCOUNTER 2025-07-27 08:27 | Day surgery (SDC) | payer OTHER ==
[2025-07-24 14:50] LABS: Absolute Lymphocytes (CBC) 1.9 K/uL (0.7-4.9); Hematocrit 36.6 % (39.6-49.0); Hemoglobin 12.5 g/dL (13.6-17.9); MCH 29.6 pg (27.0-35.0); MCHC 34.2 g/dL (32.0-36.0); MCV 86.6 fL (80-100); MPV 7.0 fL (7.6-11.3); Nucleated RBC Absolute Count 0.0 (0-0); Nucleated Red Blood Cells % 0.0 % (0-0); RBC Red Blood Cell Count 4.23 M/uL (4.33-5.43); White Blood Count 9.20 thou/uL (4.3-10.9)
[2025-07-24 15:00] LABS: PT Prothrombin Time 13.0 SECONDS (10-13.0); PTT, Activated Partial Thromb 30.7 SECONDS (27.2-37.4); Protime INR 1.16
[2025-07-24 15:05] LABS: Anion Gap 9.8 mEq/L (5.0-15.0); BUN Blood Urea Nitrogen 19.0 mg/dL (7-18); Glucose Level 102.0 mg/dL (74-106); Potassium 3.8 mEq/L (3.5-5.1)
--- NOTE | 2025-07-24 15:16 | RAD REPORT ---
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 COMPARISON: 11/11/2024 FINDINGS: The lungs are well inflated and clear. The heart is upper limit of normal in size. No displaced fract ures evident. IMPRESSION: No acute or significant abnormalities.
[2025-07-27] MEDS ORDERED: NA CHLORIDE 0.9% 500 ML ONE (09:12)
[2025-07-27] MEDS ORDERED: HEPA 1000U/500MLS 2,000 UNIT/1,000 ML BAG IV ONE (09:45)
[2025-07-27] MEDS ORDERED: LIDOCAINE 1% 20 ML MDV ONE (09:45)
[2025-07-27] MEDS ORDERED: MIDAZOLAM HCL 2 MG/2 ML INJ ONE (10:08)
[2025-07-27] MEDS ORDERED: FENTANYL CITR 100 MCG/2 ML ONE (10:08)
[2025-07-27 12:09] VITALS: TEMP 98.7
[2025-07-27 13:27] VITALS: BP 125/60
[2025-07-27 13:30] VITALS: O2SAT 99
--- NOTE | 2025-07-27 23:54 | OP ---
Date of Procedure: 07/27/2025 Surgeon: Taj Singh Procedure Performed: Bilateral carotid angiogram. Indication For Procedure: Abnormal carotid duplex. Complications: None. Estimated Blood Loss: Less than 50 cc. Access: Right common femoral artery closed by Mynx. Sedation Time: 20 minutes with 1 of Versed and 25 of fentanyl. Description Of Procedure: After risks, benefits, and alternatives were explained to the patient, the patient agreed to proceed with procedure and signed informed consent. The patient was brought back to the laborer wood preserving plant, prepped and draped in sterile fashion. Time-out was performed. Sedation was admini stered. Next, the right common femoral artery access was obtained using ultrasound-guided micropunct ure technique. Velazco 1 catheter was advanced over a J-wire to the aortic root. Selective angiogram o f bilateral carotid arteries was done using that catheter. At the end of procedure, catheter was rem charleen over a J-wire. Sheath was removed. Mynx was applied. Hemostasis achieved. The patient was mo roslyn back to Recovery in stable condition. Findings: 1. Right common carotid artery patent. 2. Right internal carotid artery patent. 3. Right external carotid artery patent. 4. Left common carotid artery patent. 5. Left internal carotid artery patent. 6. Left external carotid artery patent. Assessment And Plan: 1. Normal carotids bilaterally. 2. Plan is to continue medical management. KETAN Voice ID: [id number] Report ID: [id number]
== END 2025-07-27 13:28 | disposition home or self-care (01) ==
LOC: CCL 08:27
PROVIDERS: ATTEND Internal Medicine Interventional Cardiology
DX: I65.23 Occlusion and stenosis of bilateral carotid arteries (principal); R94.39 Abnormal result of other cardiovascular function study; I25.10 Atherosclerotic heart disease of native coronary artery without angina pectoris; I10 Essential (primary) hypertension; E78.2 Mixed hyperlipidemia; J44.9 Chronic obstructive pulmonary disease, unspecified; Z87.891 Personal history of nicotine dependence; Z79.82 Long term (current) use of aspirin; Z79.899 Other long term (current) drug therapy; Z88.5 Allergy status to narcotic agent; Z82.49 Family history of ischemic heart disease and other diseases of the circulatory system
CPT/HCPCS: 93005; 85025; 80048; 36415; 85610; 85730; 71046; 36222; 76937; C1893; J2003; J2250; J3010; J1644; J7040; C1760; 99152; 99153